=== PATIENT | male | born 1980 | race Caucasian/White ===

== ENCOUNTER 2024-04-24 00:21 | Emergency (ER) | payer MEDICAID ==
[~2024-04-24] VITALS: Ht 172.7 cm; Wt 87.0 kg
[2024-04-24 00:37] VITALS: BP 170/100; PULSE 92; RESP 18; TEMP 36.8; O2SAT 98
== END 2024-04-24 04:02 | disposition home or self-care (01) ==
LOC: ER 00:21
DX: F41.9 Anxiety disorder, unspecified (principal); F17.200 Nicotine dependence, unspecified, uncomplicated
CPT/HCPCS: 99283